=== PATIENT | male | born 1955 | race Caucasian/White ===

== ENCOUNTER 2025-01-30 06:34 | Outpatient (CLI) | payer MEDICARE, MEDICAID ==
[2025-01-30] MEDS ORDERED: LIDOcaine 1% 30ml preserv. free vial ONE (06:36)
[2025-01-30] MEDS ORDERED: GADOTERATE MEGLUMINE 7.5 MMOL/15 ML VIAL IV ONE (06:36)
[2025-01-30] MEDS ORDERED: LIDOcaine 1%/PF 5ML 10 MG/ML VIAL ONE (06:36)
[2025-01-30] MEDS ORDERED: iohexol 300 MG/1 ML 50ml polymer ONE (06:36)
== END 2025-01-30 23:59 | disposition home or self-care (01) ==
LOC: RAD 06:34
PROVIDERS: ATTEND Physician Assistant Surgical
DX: M25.531 Pain in right wrist (principal); M19.031 Primary osteoarthritis, right wrist; M65.841 Other synovitis and tenosynovitis, right hand; M24.031 Loose body in right wrist; M67.431 Ganglion, right wrist; E11.9 Type 2 diabetes mellitus without complications; Z79.4 Long term (current) use of insulin; Z79.899 Other long term (current) drug therapy
CPT/HCPCS: 25246; 73222; 77002; A9575; J2003; J3490; Q9967